=== PATIENT | female | born 1970 | race Caucasian/White ===

== ENCOUNTER → 2016-04-23 | Day surgery (SDC) | payer OTHER ==
[~2016-04-23] VITALS: Ht 152.4 cm; Wt 62.6 kg
[~2016-04-23] MED LIST: ACETAMINOPHEN 650 MG SUPP As Ordered ONE; ACETAMINOPHEN 650 MG SUPP PR ONE; BUPIVACAINE HCL 0.5% 30 ML VIAL As Ordered ONE; BUPIVACAINE HCL 0.5% 30 ML VIAL XX ONE; GLYCOPYRROLATE INJ 0.2 MG/ML 2 ML VIAL As Ordered ONE; HYDROmorphone HCL 1 MG/ML SYRINGE (J1170) IV PRN; KETOROLAC 30 MG/ML VIAL (J1885) As Ordered ONE; KETOROLAC 30 MG/ML VIAL (J1885) IV PRN; KETOROLAC 60 MG/2 ML VIAL (J1885) As Ordered ONE; LIDOCAINE 2% INJ 100 MG/5 ML SDV (FOR ANES.) As Ordered ONE; LR 1,000 ML IV SCH; MIDAZOLAM INJ 2 MG/2 ML VIAL (J2250) As Ordered ONE; NEOSTIGMINE 1MG/ML 5 ML SYRINGE (J2710) As Ordered ONE; NS 1,000 ML IV SCH; NS 500 ML IV ONE; ONDANSETRON 4MG/2ML VIAL (J2405) As Ordered ONE; ONDANSETRON 4MG/2ML VIAL (J2405) IV PRN; PERCOCET 5MG/325MG TAB PO PRN; PROPOFOL 200 MG/20 ML VIAL As Ordered ONE; ROCURONIUM BROMIDE 50 MG/5 ML VIAL As Ordered ONE; SUCCINYLCHOLINE 100 MG/5 ML SYRINGE (J0330) As Ordered ONE; dexameTHASONE 4 MG/ML 1ML VIAL (J1100) As Ordered ONE; ePHEDrine SULFATE 25 MG/5 ML(5MG/ML) SYRINGE As Ordered ONE; fentaNYL 100 MCG/2 ML INJECTION (J3010) As Ordered ONE; fentaNYL 100 MCG/2 ML INJECTION (J3010) IV PRN
[2016-04-23 06:29] LABS: MEAN CORPUSCULAR HEMOGLOBIN 31.2 pg (27.0-33.0); MEAN CORPUSCULAR HGB CONC 33.9 g/dl (32.0-36.5); MEAN CORPUSCULAR VOLUME 92.1 fl (80.0-96.0); RED CELL DISTRIBUTION WIDTH 12.1 % (11.5-14.5); WHITE BLOOD COUNT 6.2 K/mm3 (4.0-10.0)
[2016-04-23 06:45] LABS: ANION GAP 6 MEQ/L (8-16); BLOOD UREA NITROGEN 14 MG/DL (7-18); CALCIUM LEVEL 9.1 MG/DL (8.5-10.1); CARBON DIOXIDE LEVEL 27 MEQ/L (21-32); CHLORIDE LEVEL 109 MEQ/L (98-107); GLOMERULAR FILTRATION RATE > 60.0 (>58); GLUCOSE, FASTING 93 MG/DL (70-105); HCG, SERUM QUANTITATIVE < 1.0 MIU/ML; POTASSIUM SERUM 4.3 MEQ/L (3.5-5.1); SODIUM LEVEL 142 MEQ/L (136-145)
[2016-04-23 10:30] VITALS: BP 112/59
--- NOTE | 2016-04-28 11:54 | RO ---
DATE OF PROCEDURE: 04/23/2016 PREOPERATIVE DIAGNOSES: Right hydrosalpinx, chronic pelvic pain, abnormal uterine bleeding. POSTOPERATIVE DIAGNOSES: Hydrosalpinx right, chronic pelvic pain, abnormal uterine bleeding, endometriosis. OPERATION PROPOSED: Operative laparoscopy, bilateral salpingectomy, hysteroscopy, dilation and curettage, NovaSure ablation. OPERATION PERFORMED: Operative laparoscopy, bilateral salpingectomy, hysteroscopy, dilation and curettage, NovaSure ablation. SURGEON: Boogie Lopez MD CROWN BUFFER: Chula Blandon MD ANESTHESIA: General, plus local anesthetic for intraperitoneal procedures. ESTIMATED BLOOD LOSS: Less than 20 mL. DESCRIPTION OF PROCEDURE: Under adequate anesthesia, prepped and draped in the lithotomy position, a Woodard catheter in the bladder draining clear urine, acetaminophen suppository 1300 mg per rectum, sequentials on board, time-out performed. A weighted speculum in the vagina. A single-tooth tenaculum on the anterior lip of the cervix. Uterus sounded to a depth of 7 cm. Uterine elevator was placed in the cervical canal. Reprepping and draping, small subumbilical incision was made. The patient was noted to have had a previous midline incision. Veress needle was applied. 3.6 liters of CO2 to flow rate of 14 to pressure of 15. Visiport was used. Direct entry into the abdomen. No evidence of perforation, hemorrhage or bleeding. Panoramic review, right upper quadrant was normal, right round ligament was normal. Right side showed the hydrosalpinx on the right side from previous tubal ligation. There was mottling of the uterus with white pearly spots on the left cornual areas suggestive of endometriosis. Cul-de-sac had a defect in the peritoneum, which suggested endometriosis. Anterior aspects showed previous surgical intervention. Left tube again showed defect from coagulation from previous tubal ligation and a knot of area, which suggested endometriosis. A 5 mm port was placed on each side. We identified the ureters on both sides. Using the Harmonics on the right side of the hydrosalpinx, we removed the tube on that side, sent off to pathology under separate cover. There was a couple of extra bleeding spots, which were used with the Harmonics to coagulate the area. On the left side, we removed the tube in a similar fashion after identifying the ureter and that was sent under separate cover. The little knotted area at the cornual end was removed. There was an adhesive band to the sidewall of the pelvis. This was sent under separate cover. It appeared to be chocolatey in nature, possibly endometriosis, and it will be identified by pathology. With instrument and pad count correct, we irrigated. Showed no evidence of active bleeding. We deflated to 4 mm of pressure, removed the two 5 mm ports, removed the mainstem port. Put a deep stitch in the umbilical area, superficial stitches, Marcaine 0.25% to the skin and skin tapes. Then going below, we removed the uterine elevator, dilated the cervix to a Sandra 9. We did a curettage of the endometrial lining. We then went ahead put the endometrial ablation unit into the uterus. It was 6 cm length, 4 cm width. Dialed it up to 112. There was a 1-minute burn on the clock. We then removed everything. We did hysteroscopic evaluation with 150 mL of saline in, 150 mL out. There was a good burn throughout the entire anterior posterior ruiz and up to the fundus as well as the cornua. The instrument was removed. The Woodard catheter was removed. Instrument and pad count correct, and the patient was sent to recovery in good condition.
== END | disposition home or self-care (01) ==
LOC: M SDC 06:02
PROVIDERS: ATTEND Obstetrics & Gynecology
DX: R10.2 Pelvic and perineal pain (principal); N83.8 Other noninflammatory disorders of ovary, fallopian tube and broad ligament; N70.11 Chronic salpingitis; N93.8 Other specified abnormal uterine and vaginal bleeding; Z88.2 Allergy status to sulfonamides; Z87.891 Personal history of nicotine dependence
CPT/HCPCS: 36415; 58563; 58661; 80048; 84702; 85027; 88304; 88305; A4649; J0330; J1100; J1885; J2250; J2405; J2710; J3010

== ENCOUNTER 2016-05-18 17:46 | Emergency (ER) | payer OTHER ==
[~2016-05-18] VITALS: Ht 152.4 cm; Wt 60.3 kg
[2016-05-18] MEDS ORDERED: IBUP-1114 PO (17:59)
[2016-05-18] MEDS ORDERED: IBUP200C PO (17:59)
[2016-05-18] MEDS ORDERED: MULT1TAB10 PO (17:59)
[2016-05-18] MEDS ORDERED: ONDANSETRON 4MG/2ML VIAL (J2405) IV ONE (18:30)
[2016-05-18] MEDS ORDERED: MORPHINE 2 MG/ML 1ML SYRINGE IV PRN (18:30)
[2016-05-18] MEDS ORDERED: ASPIRIN 81 MG CHEW TABLET PO ONE (18:30)
[2016-05-18 18:59] LABS: BASO % 0.7 % (0.0-1.0); EOS # 0.2 K/mm3 (0.0-0.50); EOS % 2.2 % (0.0-3.0); LARGE UNSTAINED CELL # 0.1 K/mm3 (0.0-0.4); LARGE UNSTAINED CELL % 0.9 % (0.0-4.0); LYMPH # 2.3 K/mm3 (1.5-4.5); LYMPH % 31.1 % (24.0-44.0); MEAN CORPUSCULAR HEMOGLOBIN 31.1 pg (27.0-33.0); MEAN CORPUSCULAR HGB CONC 34.7 g/dl (32.0-36.5); MEAN CORPUSCULAR VOLUME 89.6 fl (80.0-96.0); MONO # 0.5 K/mm3 (0.0-0.8); MONO % 7.2 % (0.0-5.0); NEUTROPHILS # 4.2 K/mm3 (1.8-7.7); NEUTROPHILS % 57.9 % (36.0-66.0); PLATELET COUNT, AUTOMATED 295 k/mm3 (150-450); RED CELL DISTRIBUTION WIDTH 11.7 % (11.5-14.5); WHITE BLOOD COUNT 7.2 K/mm3 (4.0-10.0)
[2016-05-18 19:11] LABS: CONTROL LINE HCG INT CTR LINE PRESENT
[2016-05-18 19:21] LABS: ALBUMIN 3.5 GM/DL (3.2-5.2); ALBUMIN/GLOBULIN RATIO 1.17 (1.00-1.93); ALKALINE PHOSPHATASE 67 U/L (45-117); ALT/SGPT 14 U/L (12-78); ANION GAP 10 MEQ/L (8-16); AST/SGOT 15 U/L (15-37); BILIRUBIN,DIRECT < 0.1 MG/DL (0.0-0.2); BILIRUBIN,TOTAL 0.3 MG/DL (0.2-1.0); BLOOD UREA NITROGEN 12 MG/DL (7-18); CALCIUM LEVEL 8.5 MG/DL (8.5-10.1); CARBON DIOXIDE LEVEL 26 MEQ/L (21-32); CHLORIDE LEVEL 108 MEQ/L (98-107); CREATININE FOR GFR 1.39 MG/DL (0.55-1.02); GLOMERULAR FILTRATION RATE 43.8 (>58); GLUCOSE, FASTING 82 MG/DL (70-105); POTASSIUM SERUM 3.7 MEQ/L (3.5-5.1); SODIUM LEVEL 144 MEQ/L (136-145); TOTAL PROTEIN 6.5 GM/DL (6.4-8.2)
[2016-05-18] MEDS ORDERED: ISOVUE-370 76% 100ML VIAL (Q9967) As Ordered ONE (20:05)
--- NOTE | 2016-05-18 20:50 | REPUSA ---
History: pain. Comparison: No prior CTA of the chest available Technique: A CT-pulmonary angiogram was performed. A dose of intravenous contrast was administered. A xial images were displayed, as were sagittal and coronal reconstructions. A 3-D model was also render ed. Exam DLP: Findings: No CT evidence of pulmonary embolism is identified. There is no evidence of thoracic aortic aneurysm or dissection. No air space consolidation is identified in the lungs. There is no evidence of pulmonary edema. No pa thologically enlarged hilar or mediastinal lymph nodes are identified. No significant pleural or chayo cardial fluid collection is seen. There is no evidence of pneumothorax. Mild degenerative changes are noted in the spine. The included portion of the upper abdomen does not show significant abnormality. Bilateral breast prostheses arenoted. Impression: No evidence of pulmonary embolism is identified.
[2016-05-18] MEDS ORDERED: GI COCKTAIL 50ML BTL(HYOSCYAMINE/MAALOX/LIDOCAINE VISCOUS)(1:3:1) PO ONE (21:30)
[2016-05-18] MEDS ORDERED: HYOS1TAB PO (22:39)
[2016-05-18 23:03] VITALS: BP 124/69
--- NOTE | 2016-05-19 08:27 | REP ---
PORTABLE CHEST X-RAY: CLINICAL: Acute chest pain. COMPARISON: 03/27/2015. FINDINGS: Mediastinum and cardiac silhouette normal. Lung ross clear. No focal consolidation, effusion or pneumothorax. Skeletal structures intact. IMPRESSION: Normal portable chest x-ray. No acute cardiopulmonary process or focal consolidation. Signed by Stan Sutton MD 05/23/2016 11:04 A
--- NOTE | 2016-05-19 12:27 | ECGEPIP ---
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
--- NOTE | 2016-05-19 12:30 | ECGEPIP ---
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
== END 2016-05-18 23:16 | disposition home or self-care (01) ==
LOC: M ED 18:35
DX: K80.50 Calculus of bile duct without cholangitis or cholecystitis without obstruction (principal); Z87.891 Personal history of nicotine dependence; Z88.2 Allergy status to sulfonamides
CPT/HCPCS: 71010; 71275; 80048; 80076; 82550; 82553; 83690; 84703; 85025; 85379; 93005; 93041; 94760; 96374; 96375; 99285; J2405; Q9967

== ENCOUNTER → 2016-06-11 | Outpatient (CLI) | payer OTHER ==
[~2016-06-11] MED LIST changes: -ACETAMINOPHEN 650 MG SUPP As Ordered ONE; -ACETAMINOPHEN 650 MG SUPP PR ONE; -BUPIVACAINE HCL 0.5% 30 ML VIAL As Ordered ONE; -BUPIVACAINE HCL 0.5% 30 ML VIAL XX ONE; -GLYCOPYRROLATE INJ 0.2 MG/ML 2 ML VIAL As Ordered ONE; -HYDROmorphone HCL 1 MG/ML SYRINGE (J1170) IV PRN; +HYOS1TAB PO; +IBUP-1114 PO; +IBUP200C PO; -KETOROLAC 30 MG/ML VIAL (J1885) As Ordered ONE; -KETOROLAC 30 MG/ML VIAL (J1885) IV PRN; -KETOROLAC 60 MG/2 ML VIAL (J1885) As Ordered ONE; -LIDOCAINE 2% INJ 100 MG/5 ML SDV (FOR ANES.) As Ordered ONE; -LR 1,000 ML IV SCH; -MIDAZOLAM INJ 2 MG/2 ML VIAL (J2250) As Ordered ONE; +MULT1TAB10 PO; -NEOSTIGMINE 1MG/ML 5 ML SYRINGE (J2710) As Ordered ONE; -NS 1,000 ML IV SCH; -NS 500 ML IV ONE; -ONDANSETRON 4MG/2ML VIAL (J2405) As Ordered ONE; -ONDANSETRON 4MG/2ML VIAL (J2405) IV PRN; -PERCOCET 5MG/325MG TAB PO PRN; -PROPOFOL 200 MG/20 ML VIAL As Ordered ONE; -ROCURONIUM BROMIDE 50 MG/5 ML VIAL As Ordered ONE; -SUCCINYLCHOLINE 100 MG/5 ML SYRINGE (J0330) As Ordered ONE; -dexameTHASONE 4 MG/ML 1ML VIAL (J1100) As Ordered ONE; -ePHEDrine SULFATE 25 MG/5 ML(5MG/ML) SYRINGE As Ordered ONE; -fentaNYL 100 MCG/2 ML INJECTION (J3010) As Ordered ONE; -fentaNYL 100 MCG/2 ML INJECTION (J3010) IV PRN
--- NOTE | 2016-06-11 10:49 | REP ---
Hepatobiliary scan and gallbladder ejection fraction: History: Right upper quadrant pain. Technique: 6.1 mCi of technetium-99m mebrofenin was injected and sequential anterior images are acquired. 65 minutes after the mebrofenin injection, the patient consumed 8 ounces Ensure and an additional 60 minutes of imaging was acquired. Regions of interest are plotted around the gallbladder. Findings: The initial hepatocellular parenchymal uptake phase is normal and homogeneous. Intra- and extra-hepatic bile ducts are labeled by the 10 -minute image. The gallbladder is first labeled on the 10 -minute image. The small bowel is first labeled at 25 minutes. There is normal washout from the liver parenchyma into the gallbladder and small intestine on subsequent images. The gallbladder ejection fraction is 94 %. Values greater than 35 % are considered normal with this technique. Impression: Normal hepatobiliary scan and normal gallbladder ejection fraction. Signed by Jamey Starks MD 06/11/2016 10:39 A
== END ==
LOC: M RAD 08:17
PROVIDERS: ATTEND Family Medicine
DX: R10.11 Right upper quadrant pain (principal)